=== PATIENT | female | born 1955 | race Caucasian/White ===

== ENCOUNTER → 2024-06-26 | Outpatient (CLI) | payer MEDICARE, OTHER, SELFPAY ==
--- NOTE | 2024-06-26 12:30 | XR_ITS ---
Examination: Breast ultrasound, unilateral, left complete Date and time of exam: June 26, 2024 1300 hours INDICATIONS: Mammogram January 18, 2024 6 mm focal asymmetry inner left breast anterior depth Technique: Real-time calero scale ultrasonographic imaging performed left breast including all 4 quadrants as well as nipple retroareolar and axillary region. Findings: No cystic or solid mass IMPRESSION: BI-RADS Category 1: Negative study
--- NOTE | 2024-06-26 13:15 | XR_ITS ---
Examination: Diagnostic digital mammography, unilateral, left Computer aided detection 3-D breast Tomosynthesis, unilateral Date and time of exam: June 26, 2024 1254 hours INDICATIONS: Mammogram January 18, 2024 6 mm focal asymmetry inner left breast anterior depth Technique: Nonmagnified MLO, CC views of the left breast have been obtained, reconstructed from 3-D Tomosynthesis images. R2 computer aided detection program utilized for evaluation of suspicious masses and/or abnormal calcifications. 3-D Tomosynthesis images obtained. Findings: Scattered areas of fibroglandular density Focal asymmetry remains inner left breast Spot compression cc view anterior depth Impression: BI-RADS category 3: Probably benign findings One additional 6 month left mammogram follow-up is needed to document stability of focal asymmetry described above
== END | disposition home or self-care (01) ==
LOC: CDIM 12:42
PROVIDERS: PCP Family Medicine; Referring Provider Nurse Practitioner Family; Visit Provider Nurse Practitioner Family
DX: R92.332 Mammographic heterogeneous density, left breast (principal); N64.89 Other specified disorders of breast
CPT/HCPCS: 76641; 77061; 77065; G0279

== ENCOUNTER 2024-06-30 10:48 | Outpatient (AMB) | payer MEDICARE, OTHER, SELFPAY ==
[2024-06-30 11:35] VITALS: BP 149/90; PULSE 96; RESP 17; TEMP 36.7; O2SAT 96; BMI 36.6
--- NOTE | 2024-06-30 11:35 | PD.ORTHCLVIS ---
Vital signs 06/30/24 11:35 Height 1.52 m Height Method Stated Weight 84.623 kg Weight Measurement Method Standing Scale BMI 36.6 BP 149/90 H Blood Pressure Source Automatic Cuff Blood Pressure Location Right Upper Arm Position Sitting Respiration 17 Pulse 96 Pulse Source Monitor Temp 98.1 F Temp Source Oral Pulse Oximetry (%) 96 Oxygen Delivery Method Room Air Med/Allergies Allergies & Medications Allergies No Known Allergies Allergy (Verified 04/07/24 14:27) Subjective Visit Visit for: follow up visit Immunization / Flu Flu Vaccine in the Last 12 Months: No Flu Vaccine Exclusion Criteria: Already Received History of Present Illness Chief complaint: PT HERE FOR FOLLOW UP KNEE PAIN Patient is a pleasant 68-year-old female with bilateral knee pain worse on the right. This been ongoing for several years. She had previously tried injections of steroids as well as hyaluronic acid. She also tried diclofenac cream. She had a [address] Melo. Personal History Occupation: RETIRED Red flag PMH: none Pain Pain level (0-10): 7 Pain duration: COMES ADN GOES WITH ACTIVITY Pain location: inside (medial), outside (lateral), anterior and posterior Pain quality: sharp and aching Pain timing: increases with activity Associated signs & symptoms: weakness and stiffness Ambulatory data Ambulatory device: none Treatments Number of previous injections: 3 Improvement with previous injections: No Improvement with PT: No Improvement with NSAIDS: no Review of Systems Review of Systems: All systems negative unless otherwise noted in HPI. Exam Exam Patient is in no acute distress and is cooperative with the examination today. Breathing is nonlabored. In no respiratory distress. Bilateral extremities were evaluated and demonstrates sensation intact to light touch. Palpable pedal pulses are present. No significant edema is present. Bilateral hips were examined. The patient has no pain with log roll of the hips. Internal rotation to 30 degrees and external rotation to 30 degrees is painless. Negative FADIR. The left knee was examined. The left knee is in [varus] alignment. Range of motion from [0-115] degrees. Knee is stable to varus and valgus as well as AP translation with <5mm. Patient has a [negative] McMurrays. There is [no] pain with patellofemoral compression and [no] crepitus noted. The knee is [tender] to palpation [medially]. The right knee was also examined. The right knee is in [varus] alignment. Range of motion from [0-120] degrees. Knee is stable to varus and valgus as well as AP translation with <5mm. Patient has a [negative] McMurrays. There is [no] pain with patellofemoral compression and [no] crepitus noted. The knee is [tender] to palpation [medially]. Bilateral knee x-rays demonstrate significant joint space narrowing medially. Assessment and Plan Problem List (1) Degenerative arthritis of knee, bilateral: Status: Acute Plan: Patient is a pleasant 68-year-old female with bilateral knee pain and bilateral knee arthritis. We discussed nonoperative and operative options. She would like to lose weight. We will see her back in approximately 3 months and likely discuss total knee replacement in great detail. She has failed conservative treatment at this point. She will call us when she is ready for surgery. She has [id number] arthritis but is still doing reasonably well Advanced Care Planning Discussion Advance care planning discussed with:: patient Office Procedures GNS Level of Care Nursing/Assessment Patient Status: Established Patient Nursing Assessment/Reassesment: Medication Reconciliation, Update PMH in EMR and Vital Signs Coordination of Care: Complex Care and Chronic Disease 1-5, Education Complex Pt/Fam, Consent,records obtained, informed consent, Lab and Imaging orders, Results/Orders obtained and Staff clarify orders Established Patient Charge Established Patient Point Assignment: 110 Established Patient Point Charge: EP Level 3 (80-115) Past Medical History Past Medical History Have you ever been diagnosed with any of the following: Neurological Problems Seizures: No Cardiology Problems Congestive Heart Failure: No Hypertension: Yes Respiratory Problems Chronic Obstructive Pulmonary Disease (COPD): No Bronchitis: Yes (many years ago) Smoking: No Smoking Exposure: No Stomache/Intestinal Problems Hepatitis: No Hemorrhoids: Yes Obesity: Yes Genital/Urinary Problems Renal Disease: No Reproductive Problems Previous Pregnancies: Yes (x3) Musculoskeletal Problems Arthritis: Yes (knees, hands) Head,Eye,Nose,Throat Problems Cataracts: Yes Endocrine Problems Diabetes Mellitus Type 1: No Diabetes Mellitus Type 2: No Hypothyroidism: Yes Psychologic Problems Depression: Yes Other Problems Hospitalization: Yes (surgery) Shingles: No Blood Transfusions: No Blood Transfusion Reaction: No Anesthesia Reactions: No Chicken Pox: Yes Measles: Yes Mumps: Yes Cancer: Yes Surgical History Hysterectomy: Yes
== END 2024-06-30 11:58 | disposition home or self-care (01) ==
PROVIDERS: PCP Nurse Practitioner Family; Referring Provider Nurse Practitioner Family; Supervising Provider Orthopaedic Surgery Adult Reconstructive Orthopaedic Surgery; Visit Provider Orthopaedic Surgery Adult Reconstructive Orthopaedic Surgery
DX: M17.0 Bilateral primary osteoarthritis of knee (principal); M25.562 Pain in left knee; M25.561 Pain in right knee; I10 Essential (primary) hypertension
CPT/HCPCS: 99213; G0463

== ENCOUNTER 2024-10-13 13:40 | Outpatient (AMB) | payer MEDICARE, OTHER, SELFPAY ==
--- NOTE | 2024-10-13 13:53 | PD.ORTHCLVIS ---
Vital signs 10/13/24 13:57 Height 1.52 m Height Method Stated Weight 77.139 kg Weight Measurement Method Standing Scale BMI 33.3 BP 121/80 Blood Pressure Source Automatic Cuff Blood Pressure Location Left Upper Arm Position Sitting Respiration 17 Pulse 99 Pulse Source Monitor Temp 98.3 F Temp Source Temporal Artery Scan Pulse Oximetry (%) 99 Oxygen Delivery Method Room Air Med/Allergies Allergies & Medications Allergies No Known Allergies Allergy (Verified 04/07/24 14:27) Exam Exam Patient is in no acute distress and is cooperative with the examination today. Breathing is nonlabored. In no respiratory distress. Bilateral extremities were evaluated and demonstrates sensation intact to light touch. Palpable pedal pulses are present. No significant edema is present. Bilateral hips were examined. The patient has no pain with log roll of the hips. Internal rotation to 30 degrees and external rotation to 30 degrees is painless. Negative FADIR. The left knee was examined. The left knee is in [varus] alignment. Range of motion from [0-115] degrees. Knee is stable to varus and valgus as well as AP translation with <5mm. Patient has a [negative] McMurrays. There is [no] pain with patellofemoral compression and [no] crepitus noted. The knee is [tender] to palpation [medially]. The right knee was also examined. The right knee is in [varus] alignment. Range of motion from [0-120] degrees. Knee is stable to varus and valgus as well as AP translation with <5mm. Patient has a [negative] McMurrays. There is [no] pain with patellofemoral compression and [no] crepitus noted. The knee is [tender] to palpation [medially]. Bilateral knee x-rays demonstrate significant joint space narrowing medially. She has complete obliteration of the medial joint space of both knees Assessment and Plan Problem List (1) Degenerative arthritis of knee, bilateral: Status: Acute Plan: Patient is a pleasant 68-year-old female with bilateral knee pain and bilateral knee arthritis. She is losing weight quite rapidly with Wegovy. She would like to get bilateral knee injections with hyaluronic acid injection today. Recommend knee hyaluronic acid injections as patient would like to proceed with conservative treatment at this time. The risks and benefits of the procedure were reviewed with the patient and patient gave verbal consent to continue with the procedure. Procedure: performed by Dr. Flynn Using sterile technique the Bilateral knees were thoroughly prepped with alcohol, and 2 syringes of Synvisc 1 was injected into each knee With 1 syringe for each knee. This was injected into the medial tibiofemoral joint space and the patient tolerated the procedure well. Advanced Care Planning Discussion Advance care planning discussed with:: patient Office Procedures GNS Level of Care Nursing/Assessment Patient Status: Established Patient Nursing Assessment/Reassesment: BP Monitoring, Medication Reconciliation and Vital Signs Coordination of Care: Complex Care and Chronic Disease 1-5, Consent,records obtained, informed consent and Lab and Imaging orders Established Patient Charge Established Patient Point Assignment: 80 Established Patient Point Charge: Level 3 (80-115) MA Intake Visit Data Collection New Patient or Established: Established Patient (seen at [facility] within 3 years) Reason for Visit:: 3 MONTH FOLLOW UP Seen by Clinical Staff ONLY (RN/MA): No Verbal consent obtained for Telemed visit?: No Magazine Worker Required: No PCP or OBGYN visit in last 3 months: No Hx Now: No Do You Feel Safe at Home: Yes Authorities Contacted: N/A Questionairres Past Medical History Past Medical History Have you ever been diagnosed with any of the following: Neurological Problems Seizures: No Cardiology Problems Congestive Heart Failure: No Hypertension: Yes Respiratory Problems Chronic Obstructive Pulmonary Disease (COPD): No Bronchitis: Yes (many years ago) Smoking: No Smoking Exposure: No Stomache/Intestinal Problems Hepatitis: No Hemorrhoids: Yes Obesity: Yes Genital/Urinary Problems Renal Disease: No Reproductive Problems Previous Pregnancies: Yes (x3) Musculoskeletal Problems Arthritis: Yes (knees, hands) Head,Eye,Nose,Throat Problems Cataracts: Yes Endocrine Problems Diabetes Mellitus Type 1: No Diabetes Mellitus Type 2: No Hypothyroidism: Yes Psychologic Problems Depression: Yes Other Problems Hospitalization: Yes (surgery) Shingles: No Blood Transfusions: No Blood Transfusion Reaction: No Anesthesia Reactions: No Chicken Pox: Yes Measles: Yes Mumps: Yes Cancer: Yes Surgical History Hysterectomy: Yes Subjective Visit Visit for: follow up visit Immunization / Flu Flu Vaccine in the Last 12 Months: Yes Flu Vaccine Exclusion Criteria: Already Received History of Present Illness Chief complaint: 3 MONTH FOLLOW UP/DESIRES SURGERY Hope is a pleasant 68-year-old female with bilateral knee pain and bilateral knee arthritis. The right side is worse than the left. She continues to lose weight very rapidly. The pain has improved somewhat Personal History Occupation: RETIRED Pain Pain level (0-10): 5 Pain duration: CONSTANT Pain location: inside (medial), outside (lateral), anterior and posterior Pain quality: sharp Pain timing: increases with activity Associated signs & symptoms: none Treatments Improvement with NSAIDS: n/a Review of Systems Review of Systems: All systems negative unless otherwise noted in HPI.
[2024-10-13 13:57] VITALS: BP 121/80; PULSE 99; RESP 17; TEMP 36.8; O2SAT 99; BMI 33.3
== END 2024-10-13 14:26 | disposition home or self-care (01) ==
LOC: HODSRG 13:40
PROVIDERS: PCP Family Medicine; Referring Provider Family Medicine; Supervising Provider Orthopaedic Surgery Adult Reconstructive Orthopaedic Surgery; Visit Provider Orthopaedic Surgery Adult Reconstructive Orthopaedic Surgery
DX: M17.0 Bilateral primary osteoarthritis of knee (principal); I10 Essential (primary) hypertension
CPT/HCPCS: 20610; 99213; G0463; J7325

== ENCOUNTER → 2024-10-25 | Outpatient (CLI) | payer MEDICARE, OTHER, SELFPAY ==
[2024-10-25 15:44] LABS: Anion Gap 7 (7-16); BUN/Creatinine Ratio 12 Ratio (12-20); Blood Urea Nitrogen 12 mg/dL (9-23); Calcium 9.9 mg/dL (8.3-10.6); Carbon Dioxide 28.5 mMol/L (20.0-31.0); Chloride 107 mMol/L (98-107); Glucose 100 mg/dL (74-106); Osmolality,Calculated 282 (275-295); Potassium 5.1 mMol/L (3.4-5.1); Sodium 142 mMol/L (136-145); eGFR > 60 See Note
== END | disposition home or self-care (01) ==
LOC: COPL 14:22
PROVIDERS: PCP Family Medicine; Referring Provider Nurse Practitioner Family; Visit Provider Nurse Practitioner Family
DX: H49.22 Sixth [abducent] nerve palsy, left eye (principal)
CPT/HCPCS: 36415; 80048

== ENCOUNTER → 2024-11-21 | Outpatient (CLI) | payer MEDICARE, OTHER, SELFPAY ==
--- NOTE | 2024-11-21 14:30 | XR_ITS ---
Examination: MRI of brain without intravenous contrast. MRI brain with intravenous contrast. Date and time of exam:November 21, 2024 1512 hours INDICATIONS: Left nerve palsy, double vision 2 years getting worse Technique: Multiple axial and sagittal images of the brain to been obtained. Siemens high-resolution 1.52 Chiara short bore scanner utilized. Sagittal sections, T1 weighted images, TR 500, TE 14, are performed. Axial sections proton-density and T2-weighted images have been obtained. Inversion recovery axial images, TR 9260, TE 111, TR 2500. Diffusion weighted images, axial sections, TR 4800, TE 128, B value 1000. Axial sections, ADC map, TR 4800, TE 128. Axial and coronal images were also obtained post 14 cc gadolinium administered intravenously. Findings:: Enlargement of the sella turcica is not present. The optic chiasm and infundibular stalk are not remarkable. There is no localized enlargement of the medulla or neil. Fourth ventricle and cerebellar tonsils appear normal in position. No subacute area of hemorrhage density is seen. Fourth ventricle is midline. Mass in the cerebellopontine angle region is not evident. 7th and 8th nerve complexes exhibit symmetry Globes are symmetrical Orbital musculature including medial lateral rectus muscles do not exhibit abnormality Increased white matter signal is mild Effacement of the cortical sulcal markings is not identified. Mass effect upon the ventricular system is not identified. Diffusion-weighted images demonstrate no focus of restricted diffusion Contrast images demonstrate no abnormal cerebellar or cerebral enhancement Impression: Negative for acute hemorrhage mass effect or midline shift No acute infarct Mild chronic microvascular white matter change No abnormal enhancing cerebellar or cerebral lesions
== END | disposition home or self-care (01) ==
LOC: SMRI 14:27
PROVIDERS: PCP Nurse Practitioner Family; Referring Provider Nurse Practitioner Family; Visit Provider Nurse Practitioner Family
DX: R90.82 White matter disease, unspecified (principal)
CPT/HCPCS: 70553; A9579

== ENCOUNTER → 2025-01-09 | Outpatient (BNVA) | payer MEDICARE, OTHER, SELFPAY | END | disposition home or self-care (01) | PROVIDERS: PCP Nurse Practitioner Family; Referring Provider Nurse Practitioner Family; Visit Provider Urology | DX: N32.81 Overactive bladder (principal); Z87.440 Personal history of urinary (tract) infections; I10 Essential (primary) hypertension; E03.9 Hypothyroidism, unspecified | CPT/HCPCS: 81003; 99212; G0463 ==

== ENCOUNTER 2025-02-13 08:08 | Outpatient (AMB) | payer MEDICARE, OTHER, SELFPAY ==
--- NOTE | 2025-02-13 08:10 | PD.ORTHCLVIS ---
Vital signs 02/13/25 08:17 Height 1.52 m Height Method Stated Weight 67.132 kg Weight Measurement Method Standing Scale BMI 29.0 BP 126/85 H Blood Pressure Source Automatic Cuff Blood Pressure Location Left Upper Arm Position Sitting Respiration 18 Pulse 114 H Pulse Source Monitor Temp 95.9 F L Temp Source Temporal Artery Scan Pulse Oximetry (%) 97 Oxygen Delivery Method Room Air Med/Allergies Allergies & Medications Allergies No Known Allergies Allergy (Verified 02/13/25 08:19) Medication Reconciliation paroxetine HCl 25 mg tablet,extended release 24 hr (Paxil CR) 50 mg PO QDAY ##0 10/09/14 [History Confirmed 02/13/25] pravastatin 80 mg tablet (Pravachol) 80 mg PO HS #0 tabs 10/09/14 [History Confirmed 02/13/25] levothyroxine 150 mcg tablet 150 mcg PO QDAY 01/05/18 [History Confirmed 02/13/25] oxybutynin chloride 10 mg tablet,extended release 24 hr 10 mg PO QDAY 03/16/22 [History Confirmed 02/13/25] lisinopril 10 mg tablet 10 mg PO QDAY 01/09/25 [History Confirmed 02/13/25] lisinopril 10 mg tablet 10 mg PO QDAY #0 tabs 01/09/25 [History Confirmed 02/13/25] semaglutide (weight loss) 0.5 mg/0.5 mL subcutaneous pen injector (Wegovy) 0.5 mg subcut QWEEK 01/09/25 [History Confirmed 02/13/25] Exam Exam Patient is in no acute distress and is cooperative with the examination today. Breathing is nonlabored. In no respiratory distress. Bilateral extremities were evaluated and demonstrates sensation intact to light touch. Palpable pedal pulses are present. No significant edema is present. Bilateral hips were examined. The patient has no pain with log roll of the hips. Internal rotation to 30 degrees and external rotation to 30 degrees is painless. Negative FADIR. The left knee was examined. The left knee is in [varus] alignment. Range of motion from [0-115] degrees. Knee is stable to varus and valgus as well as AP translation with <5mm. Patient has a [negative] McMurrays. There is [no] pain with patellofemoral compression and [no] crepitus noted. The knee is [tender] to palpation [medially]. The right knee was also examined. The right knee is in [varus] alignment. Range of motion from [0-120] degrees. Knee is stable to varus and valgus as well as AP translation with <5mm. Patient has a [negative] McMurrays. There is [no] pain with patellofemoral compression and [no] crepitus noted. The knee is [tender] to palpation [medially]. Bilateral knee x-rays demonstrate significant joint space narrowing medially. She has complete obliteration of the medial joint space of both knees Assessment and Plan Problem List (1) Degenerative arthritis of knee, bilateral: Status: Acute Plan: Patient is a pleasant 68-year-old female with bilateral knee pain and bilateral knee arthritis. She has lost a lot of weight and has lost about 40 pounds at this point in time. We thus discussed right total knee replacement as a reasonable option The nature and purpose of the total knee replacement, alternative method(s) of treatment, the material risks involved, and the possibility of complications were fully explained to the patient. The patient does NOT have any of the following contraindications to TKA: - Active infection of the knee joint, OR - Active systemic bacteremia, OR - Active skin infection or open wound at surgical site, OR - Neuropathic arthritis, OR - Severe, rapidly progressive neurological disease, OR - Severe medical condition that makes risks of surgery outweigh the potential benefit The patient was told the most common risks and complications associated with a total knee replacement include, but are not limited to: blood clots in the leg, fatal pulmonary embolism, dislocation of the prosthesis, intraoperative and postoperative fractures of the femur or tibia, infection, failure of the prosthesis or grafting materials, complications from anesthesia, reactions to blood transfusions, postoperative leg length inequality, instability of the knee replacement, nerve damage or injury, vascular injury, delayed wound healing, infection, other injury or even . In addition, there are risks associated with anesthesia given during this operation. Also, the patient was told that after undergoing a total knee replacement there may still be persistent pain or disability. The patient was informed that the success of this operation in part depends upon the mechanical devices which are going to be implanted and that these devices can fail or malfunction, and may need to be repaired or replaced and there are no guarantees as to the longevity of this device or its parts and that it or its parts could fail prematurely. The patient was also notified that during the course of surgery, there may be a need to use bone graft from donors, and that any bone graft used will be carefully screened for communicable diseases, including AIDS, hepatitis, Mj-Creutzfeldt, or other diseases, but despite the screening procedures, there is a small chance that they could contract one of these diseases. Finally, the patient was asked to follow completely and fully with all advice and recommended treatments, and that recovery and ultimate outcome are affected by their compliance with recommended treatment. We discussed the risks, benefits and treatment alternatives, and the patient is interested in proceeding with surgery. We will try to set this up as expeditiously as possible. Advanced Care Planning Discussion Advance care planning discussed with:: patient Office Procedures GNS Level of Care Nursing/Assessment Patient Status: Established Patient Nursing Assessment/Reassesment: Medication Reconciliation, Update PMH in EMR and Vital Signs Coordination of Care: Complex Care and Chronic Disease 1-5, Education Complex Pt/Fam, Consent,records obtained, informed consent, Results/Orders obtained and Staff clarify orders Established Patient Charge Established Patient Point Assignment: 95 Established Patient Point Charge: EP Level 3 (80-115) MA Intake Visit Data Collection New Patient or Established: Established Patient (seen at [facility] within 3 years) Reason for Visit:: FOLLOW UP RIGHT KNEE PAIN Seen by Clinical Staff ONLY (RN/MA): No PCP or OBGYN visit in last 3 months: Yes Hx Now: No Do You Feel Safe at Home: Yes Authorities Contacted: N/A Questionairres Past Medical History Past Medical History Have you ever been diagnosed with any of the following: Neurological Problems Cerebrovascular Accident (CVA): No Transient Ischemic Attacks (TIA): No Dementia: No Alzheimer's Disease: No Parkinson's Disease: No Brain Tumor: No Meningitis: No Seizures: No Epilepsy: No Multiple Sclerosis: No Cerebral Palsy: No Amyotrophic Lateral Sclerosis (ALS/Nakia Gehrig's): No Guillain-Auburn Syndrome: No Spina Bifida: No Paralysis: No Peripheral Neuropathy: No Hurtado's Palsy: No Subdural Hematoma: No Migraine: No Head Trauma: No Spinal Cord Injury: No Traumatic Brain Injury: No Cardiology Problems Myocardial Infarction: No Cardiac Arrhythmia: No Atrial Fibrillation: No Angina: No Heart Murmur: No Coronary Artery Disease: No Atherosclerotic Heart Disease: No Peripheral Vascular Disease: No Hypercholesterolemia: No Aneurysm: No Congestive Heart Failure: No Congenital Heart Disease: No Valvular Heart Disease: No Rheumatic Fever: No Cardiomyopathy: No Edema: No Pericarditis: No Cellulitis: No Deep Vein Thrombosis: No Hypertension: Yes Hypotension: No Varicose Veins: No Respiratory Problems Chronic Obstructive Pulmonary Disease (COPD): No Asthma: No Bronchitis: Yes (many years ago) Emphysema: No Pneumonia: No Pulmonary Fibrosis: No Tuberculosis: No Pulmonary Embolism: No Pulmonary Edema: No Sleep Apnea: No CPAP Dependent: No Respiratory Aspiration: No Dyspnea: No Orthopnea: No Hx Cough: No Cough: No Wheezing: No Chest Deformities: No Smoking: No Smoking Cessation Counseling: No Smoking Exposure: No Stomache/Intestinal Problems Hepatitis: No Hemorrhoids: Yes Obesity: Yes Genital/Urinary Problems Renal Disease: No Reproductive Problems Previous Pregnancies: Yes (x3) Musculoskeletal Problems Arthritis: Yes (knees, hands) Head,Eye,Nose,Throat Problems Cataracts: Yes Endocrine Problems Diabetes Mellitus Type 1: No Diabetes Mellitus Type 2: No Hypothyroidism: Yes Psychologic Problems Depression: Yes Other Problems Hospitalization: Yes (surgery) Shingles: No Blood Transfusions: No Blood Transfusion Reaction: No Anesthesia Reactions: No Chicken Pox: Yes Measles: Yes Mumps: Yes Cancer: Yes Surgical History Hysterectomy: Yes Subjective Visit Visit for: follow up visit and knee Immunization / Flu Flu Vaccine in the Last 12 Months: Yes Flu Vaccine Exclusion Criteria: Already Received History of Present Illness Chief complaint: 3 MONTH FOLLOW UP/DESIRES SURGERY Hope is a pleasant 68-year-old female with bilateral knee pain and bilateral knee arthritis. The right side is worse than the left. She has lost over 40 pounds and her weight is plateauing and she has tried Multiple injections, anti-inflammatories, and home exercises. At this point, the pain is affecting her quality life and happiness. We did discuss total knee replacement is a reasonable option Personal History Occupation: RETIRED Pain Pain level (0-10): 5 Pain duration: CONSTANT Pain location: inside (medial), outside (lateral), anterior and posterior Pain quality: sharp Pain timing: increases with activity Associated signs & symptoms: none Treatments Improvement with previous injections: No Improvement with PT: No Improvement with NSAIDS: n/a Review of Systems Review of Systems: All systems negative unless otherwise noted in HPI.
[2025-02-13 08:17] VITALS: BP 126/85; PULSE 114; RESP 18; TEMP 35.5; O2SAT 97; BMI 29.0
--- NOTE | 2025-02-13 08:34 | XR_ITS ---
Examination: Bilateral knees 2 views Right lateral knee left lateral knee 2 views Bilateral axial knees single view TECHNIQUE: Bilateral AP knees standing single view, bilateral PA knees standing single view flexion Standing right lateral knee left lateral knee 2 views Bilateral axial knees single view total 5 views Date and time: February 13, 2025 0847 hours Comparison December 30, 2023 INDICATIONS: Bilateral knee pain several years. FINDINGS: Advanced narrowing medial joint spaces bilaterally, more severe on the left Bilateral moderate osteoarthritis patellofemoral joints No fractures No patellar dislocations IMPRESSION: Advanced narrowing medial joint spaces bilaterally, more severe on the left Bilateral moderate osteoarthritis patellofemoral joints
== END 2025-02-13 08:53 | disposition home or self-care (01) ==
LOC: HODSRG 08:08
PROVIDERS: PCP Nurse Practitioner Family; Referring Provider Nurse Practitioner Family; Supervising Provider Orthopaedic Surgery Adult Reconstructive Orthopaedic Surgery; Visit Provider Orthopaedic Surgery Adult Reconstructive Orthopaedic Surgery
DX: M17.0 Bilateral primary osteoarthritis of knee (principal); M25.562 Pain in left knee; M25.561 Pain in right knee; I10 Essential (primary) hypertension; E03.9 Hypothyroidism, unspecified
CPT/HCPCS: 73564; 99213; G0463

== ENCOUNTER → 2025-02-16 | Outpatient (CLI) | payer MEDICARE, OTHER, SELFPAY ==
[2025-02-16 16:10] LABS: Basophils # (Auto) 0.0 Thou/mm3 (0.0-0.2); Basophils % (Auto) 1 % (0-2.5); Eosinophils # (Auto) 0.1 Thou/mm3 (0.0-0.5); Eosinophils % (Auto) 1 % (0-10); Hematocrit 47.8 % (36.0-46.0); Hemoglobin 15.5 g/dL (12.0-16.0); Immature Granulocytes Auto 0.02 Thou/mm3 (0.00-0.00); Lymphocytes # (Auto) 1.7 Thou/mm3 (1.0-4.8); Lymphocytes % (Auto) 25 % (10-50); Mean Corpuscular HGB Conc 32.4 g/dl (31.0-37.0); Mean Corpuscular Hemoglobin 27.2 pg (25.0-35.0); Mean Corpuscular Volume 84 fL (80-100); Monocytes # (Auto) 0.5 Thou/mm3 (0.0-0.8); Monocytes % (Auto) 7 % (0-12); Neutrophils # (Auto) 4.4 Thou/mm3 (1.8-7.7); Neutrophils % (Auto) 66 % (37-80); Nucleated Red Blood Cell # 0.00 Thou/mm3 (0.00-0.00); Nucleated Red Blood Cell % 0 /100 WBC (0); Platelet Count 254 Thou/mm3 (140-440); RDW Standard Deviation 38.4 fL (36.4-46.3); Red Blood Count 5.70 Miln/mm3 (4.00-5.20); White Blood Count 6.6 Thou/mm3 (3.6-11.0)
[2025-02-16 16:21] LABS: Glucose Estimated Average 103 mg/dL (80-131); Hemoglobin A1C 5.2 % Hgb (4.8-6.0); INR 1.0 (0.9-1.3); Partial Thromboplastin Time 24.5 Seconds (22.0-36.0); Prothrombin Time 11.4 Seconds (9.0-12.2)
[2025-02-16 16:24] LABS: Alanine Aminotransferase 16 U/L (10-49); Albumin, Serum 4.6 gm/dL (3.4-4.8); Albumin/Globulin Ratio 2.1 (1.2-2.2); Alkaline Phosphatase 63 U/L (46-116); Anion Gap 10 (7-16); Aspartate Amino Transferase 22 U/L (0-34); BUN/Creatinine Ratio 10 Ratio (12-20); Bilirubin,Total 0.6 mg/dL (0.3-1.2); Blood Urea Nitrogen 10 mg/dL (9-23); Calcium 10.1 mg/dL (8.3-10.6); Calcium (Corrected) 10.1 mg/dL (8.5-10.1); Carbon Dioxide 25.7 mMol/L (20.0-31.0); Chloride 104 mMol/L (98-107); Creatinine (Component) 1.0 mg/dL (0.6-1.3); Globulin 2.2 gm/dL (2.3-3.5); Glucose 90 mg/dL (74-106); Osmolality,Calculated 278 (275-295); Potassium 5.6 mMol/L (3.4-5.1); Sodium 140 mMol/L (136-145); Total Protein 6.8 gm/dL (5.7-8.2); eGFR > 60 See Note
== END | disposition home or self-care (01) ==
LOC: COPL 14:16
PROVIDERS: PCP Nurse Practitioner Family; Referring Provider Nurse Practitioner Family; Visit Provider Nurse Practitioner Family
DX: Z01.818 Encounter for other preprocedural examination (principal)
CPT/HCPCS: 36415; 80053; 83036; 85025; 85610; 85730

== ENCOUNTER → 2025-02-19 | Outpatient (CLI) | payer MEDICARE, OTHER, SELFPAY ==
[2025-02-19 15:49] LABS: Potassium 4.9 mMol/L (3.4-5.1)
== END | disposition home or self-care (01) ==
LOC: COPL 14:21
PROVIDERS: PCP Family Medicine; Referring Provider Nurse Practitioner Family; Visit Provider Nurse Practitioner Family
DX: E87.5 Hyperkalemia (principal)
CPT/HCPCS: 36415; 84132

== ENCOUNTER → 2025-03-02 | Outpatient (CLI) | payer MEDICARE, OTHER, SELFPAY ==
--- NOTE | 2025-03-02 12:00 | XR_ITS ---
Examination: CT right lower extremity, without contrast. 2-D sagittal reconstructions. 2-D coronal reconstructions. 3-D reconstructions. Date and time of exam:March 12, 2025 12:30 PM INDICATIONS: Diagnosis unilateral right knee osteoarthritis, right knee pain years CTDI: vol (mGy):28.8 DLP: (mGycm):1015 Technique: Multiple 1.25 mm axial sections of the right lower extremity without intravenous contrast have been obtained. 2-D sagittal and coronal reconstructions have been obtained. 3-D reconstructions have been obtained. Low dose protocols were performed. One or more of the following dose reduction techniques were used; automated exposure control, adjustment of the mA and/or KV according to patient size, use of iterative reconstruction technique. Findings: Moderate osteopenia Mild bilateral narrowing hip joints Advanced narrowing medial joint space right knee No right knee fracture or dislocation IMPRESSION: Advanced narrowing medial joint space right knee
== END | disposition home or self-care (01) ==
LOC: CCTX 11:45
PROVIDERS: PCP Nurse Practitioner Family; Referring Provider Orthopaedic Surgery Adult Reconstructive Orthopaedic Surgery; Visit Provider Orthopaedic Surgery Adult Reconstructive Orthopaedic Surgery
DX: M25.861 Other specified joint disorders, right knee (principal)
CPT/HCPCS: 73700

== ENCOUNTER → 2025-03-08 | Outpatient (CLI) | payer MEDICARE, OTHER, SELFPAY ==
--- NOTE | 2025-03-08 10:45 | XR_ITS ---
Examination: Screening digital mammography, bilateral Computer aided detection 3-D breast Tomosynthesis, bilateral Date and time of exam: March 08, 2025 1034 hours Compared to mammograms dating to July 24, 2015 Indication: Screening Technique: Nonmagnified MLO, CC views of the breasts to been obtained, reconstructed from 3-D Tomosynthesis images. R2 computer aided detection program utilized for evaluation of suspicious masses and/or abnormal calcifications. 3-D Tomosynthesis images obtained. Findings: Scattered areas of fibroglandular density 4 mm nodule retroareolar region left breast partially circumscribed Skin lesion left breast Impression: BI-RADS Category 0: Incomplete: Need additional imaging evaluation Recommend follow-up spot tomographic views of 4 mm nodule retroareolar region left breast as well as bilateral breast sonography to complete the workup
== END | disposition home or self-care (01) ==
LOC: CDIM 10:19
PROVIDERS: Referring Provider Nurse Practitioner Family; Visit Provider Nurse Practitioner Family
DX: Z12.31 Encounter for screening mammogram for malignant neoplasm of breast (principal); N63.42 Unspecified lump in left breast, subareolar
CPT/HCPCS: 77063; 77067

== ENCOUNTER 2025-03-21 05:35 | Day surgery (SDC) | payer MEDICARE, OTHER, SELFPAY ==
[2025-03-15 07:37] VITALS: BMI 27.1
[2025-03-15 09:02] LABS: Basophils # (Auto) 0.0 Thou/mm3 (0.0-0.2); Basophils % (Auto) 1 % (0-2.5); Eosinophils # (Auto) 0.1 Thou/mm3 (0.0-0.5); Eosinophils % (Auto) 2 % (0-10); Hematocrit 45.9 % (36.0-46.0); Hemoglobin 15.1 g/dL (12.0-16.0); Immature Granulocytes Auto 0.03 Thou/mm3 (0.00-0.00); Lymphocytes # (Auto) 2.2 Thou/mm3 (1.0-4.8); Lymphocytes % (Auto) 28 % (10-50); Mean Corpuscular HGB Conc 32.9 g/dl (31.0-37.0); Mean Corpuscular Hemoglobin 27.5 pg (25.0-35.0); Mean Corpuscular Volume 84 fL (80-100); Monocytes # (Auto) 0.5 Thou/mm3 (0.0-0.8); Monocytes % (Auto) 7 % (0-12); Neutrophils # (Auto) 4.8 Thou/mm3 (1.8-7.7); Neutrophils % (Auto) 62 % (37-80); Nucleated Red Blood Cell # 0.00 Thou/mm3 (0.00-0.00); Nucleated Red Blood Cell % 0 /100 WBC (0); Platelet Count 269 Thou/mm3 (140-440); RDW Standard Deviation 39.1 fL (36.4-46.3); Red Blood Count 5.50 Miln/mm3 (4.00-5.20); White Blood Count 7.7 Thou/mm3 (3.6-11.0)
[2025-03-15 09:11] LABS: INR 1.0 (0.9-1.3); Partial Thromboplastin Time 26.8 Seconds (22.0-36.0); Prothrombin Time 11.4 Seconds (9.0-12.2)
[2025-03-15 09:13] LABS: Alanine Aminotransferase 14 U/L (10-49); Albumin, Serum 4.6 gm/dL (3.4-4.8); Albumin/Globulin Ratio 2.0 (1.2-2.2); Alkaline Phosphatase 63 U/L (46-116); Anion Gap 9 (7-16); Aspartate Amino Transferase 25 U/L (0-34); BUN/Creatinine Ratio 7 Ratio (12-20); Bilirubin,Total 0.5 mg/dL (0.3-1.2); Blood Urea Nitrogen 6 mg/dL (9-23); Calcium 10.1 mg/dL (8.3-10.6); Calcium (Corrected) 10.1 mg/dL (8.5-10.1); Carbon Dioxide 27.8 mMol/L (20.0-31.0); Chloride 105 mMol/L (98-107); Creatinine (Component) 0.9 mg/dL (0.6-1.3); Estimated Creatinine Clearance 50.3 mL/min (>60); Globulin 2.3 gm/dL (2.3-3.5); Glucose 94 mg/dL (74-106); Osmolality,Calculated 280 (275-295); Potassium 4.0 mMol/L (3.4-5.1); Sodium 142 mMol/L (136-145); Total Protein 6.9 gm/dL (5.7-8.2); eGFR > 60 See Note
[2025-03-21] VITALS (21 sets, daily range): BP systolic 98–146; BP diastolic 67–97; PULSE 82–101; RESP 14–20; TEMP 36.1–36.9; O2SAT 95–100; BMI 27.3; BMI 14.0
[2025-03-21] MEDS: ACETAMINOPHEN 325 MG TABLET 650 MG PO (07:03)
[2025-03-21] MEDS: PREGABALIN 75 MG CAPSULE PO (07:03)
[2025-03-21] MEDS: MELOXICAM 7.5 MG TABLET PO (07:03)
[2025-03-21] MEDS: SODIUM CHLORIDE 0.9% 500 ML 1,000 ML 20 ML IV (07:05)
--- NOTE | 2025-03-21 08:47 | XR_ITS ---
Examination: Right knee 2 views Technique: AP lateral right knee 2 views Date and time: March 21, 2025, 0941 hrs. Indications: Status post knee replacement today. Findings: Total right knee arthroplasty. Satisfactory alignment. No fracture. Impression: Total right knee arthroplasty with satisfactory alignment.
--- NOTE | 2025-03-21 08:48 | PD.SUROPNT ---
Date of Procedure 03/21/25 Pre Op Diagnosis right knee osteoarthritis Post Op Diagnosis right knee osteoarthritis Procedure right total knee replacement richard Findings full thickness cartilage loss and osteophytes Procedure Description Indication: The patient is a 69 year old who has a long history of right knee pain. X-rays show degenerative arthritis involving the knee. Over the past several years the patient has had increasing pain, progressive limitation in function. He has failed conservative measures including activity modification, physical therapy, injections, anti-inflammatories, and assistive devices. After a lengthy discussion of the risks and benefits, the patient presents now for total knee replacement. The nature and purpose of the total knee replacement, alternative method(s) of treatment, the material risks involved, and the possibility of complications were fully explained to the patient. The patient was told the most common risks and complications associated with a total knee replacement include, but are not limited to blood clots in the leg, fatal pulmonary embolism, dislocation of the prosthesis, intraoperative and postoperative fractures of the femur or tibia, infection, failure of the prosthesis or grafting materials, complications from anesthesia, reactions to blood transfusions, postoperative leg length inequality, instability of the knee replacement, nerve damage or injury, vascular injury, delayed wound healing, infections, other injury or even . In addition, there are risks associated with anesthesia given during this operation, temporary or permanent numbness on the skin lateral to the incision can be a complication unique to total knee surgery, and kneeling can be painful after knee replacement surgery. Also, the patient was told that after undergoing a total knee replacement there may still be pain or disability. We discussed with the patient that we will be using a robot-assisted technology. We discussed that there is a possibility of converting to manual instrumentation. The patient was informed that the success of this operation in part depends upon the mechanical devices which are going to be implanted and that these devices can fail or malfunction, and may need to be repaired or replaced and there are no guarantees as to the longevity of this device or its part and that it or its parts could fail prematurely. Finally, the patient was asked to follow completely and fully with all advice and recommended treatments, and that recovery and ultimate outcome are affected by their compliance with recommended treatment. Surgical technique: Patient was marked and consented in the pre-operative area. The patient was brought to the operating room and placed on the operating table in a supine position. Prior to positioning, a timeout procedure was performed between the surgeon, the anesthesiologist, and the nursing staff where the patient and the operative side were identified and confirmed. After adequate general anesthetic was obtained, the right lower extremity was prepped and draped in the usual sterile fashion. A weight based dose of Cefazolin were administered within 1 hour prior to incision. The robot was preregistered and calirated before the incision. The extremity was exsanguinated with an esmarch badge and tourniquet inflated to 250mmHg. A midline incision was made. A median parapatellar arthrotomy was made. The patella was subluxed laterally. A medial release was performed to expose the medial tibia. His femoral and tibial pins were placed through an intra incisional manner for both cases. Every effort was made to ensure that the distalmost aspect of the pin was hung in the second cortex. The arrays were then tightened several times to ensure that it was fixed for the remainder of the case. Both femoral and tibial checkpoints were then placed. We then went through the registration process of the bone. We then assessed the knee deformity and attempted to correct it. We also used the robot to aid in judging laxity in both extension and flexion. Final based on laxity and alignment we changed the preoperative assessment to obtain proper proper implant positioning and to correct deformity. Attention was then placed to the tibia. We made a tibial cut using the robot ensuring that both the MCL and the patella tendon were protected with retractors. We then went to the femur and made the posterior cut followed by the anterior cut and the anterior chamfer. The bone was then removed and we made a distal femur cut and a posterior chamfer cut. We verified all cuts. A trial reduction was performed with a size 3 femoral component and a size 3 keeled tibial component. The patella tracked centrally, and no lateral retinacular release was necessary. The trial implants were removed. The arrays, pins, and checkpoints were all removed. We performed a verification that all pins were removed. The cut bone surfaces were lavaged. A size 3 right femoral component, a size 3 keeled tibial component were impacted into position. The knee was felt to be well balanced in the sagittal and coronal plane. The final [2x12] mm cruciate-substituting articular insert was impacted into the tibial tray. The knee was brought out to full extension, flexed up to 120 degrees. It was stable to varus and valgus stress and appropriately balanced in flexion and extension. The wounds were copiously irrigated following deflation of tourniquet. The medial retinaculum was reapproximated with #1 vicryl and quill. The subcutaneous tissues were closed with 0 and 2-0 interrupted Vicryl. The skin was closed with 3-0 Monofilament V loc suture. A sterile dressing was applied. The patient was transferred to a bed and brought to recovery in stable condition. The patient tolerated the procedure well. There were no intraoperative complications. Sponge and needle counts were correct times 2. As the attending surgeon, Gino macias I was present and performed the entire operation. Grafts/Implants Size 3 CR Femur Size 3 Tibia 10mm poly CS Anesthesia spinal Implants larry Pathology / specimen None Pathology comment: none Estimated Blood Loss 150 Condition Stable Disposition same day Surgeon Arvind Flynn MD Surgical Staff Operation Date: 03/21/25 07:30 Case Staff Anesthesiologist: Enrike Cool RNbranch or department chief librarian: Lara Newman
--- NOTE | 2025-03-21 09:10 | SUR.PHASEI ---
0910 Patient arrived to recovery resting comfortably in [facility], awake and alert, breathing unlabored, vital signs stable, denies pain, dressing intact to right knee; prineo, abd, telfa, webril, hannah wraps, no bleeding noted, bilateral dorsalis pedis pulses present when palpated, post spinal anesthesia assessment via ice; patient has dermatome sensation at T-10 (umbilicus), patient unable to move bilateral lower extremities, due spinal anesthesia-will monitor, report recieved from Dr. Cool and Yanci REHMAN
--- NOTE | 2025-03-21 11:55 | SUR.PHASEII ---
1155 spinal anesthesia complete patient has dermatome sensation at S2 perineum
--- NOTE | 2025-03-21 12:34 | SUR.PHASEII ---
[id number] patient working with physical therapy and feeling dizzy and shaky, physical therapist stated she wanted to give patient one hour to rest and she would return at 1337
--- NOTE | 2025-03-21 13:26 | SUR.PHASEII ---
1248: pt sitting up in [facility] with eyes open, eating lunch, denies pain, breathing unlabored, dressing to right lower extremity clean, dry, and intact, report from Amy Martínez RN 1326: pt resting in [facility], breathing unlabored, dressing to right lower extremity clean, dry, and intact, report to Amy Martínez RN
--- NOTE | 2025-03-21 13:45 | SUR.PHASEII ---
1345 patient cleared by physical therapist Yani to proceed with discharge, however patient unable to void in restroom, will continue to encourage patient to drink fluids
--- NOTE | 2025-03-21 15:10 | SUR.PHASEII ---
1510 patient disconnected from vital signs stable, voided in the restroom, and is awaiting her to come back to the hospital
--- NOTE | 2025-03-21 15:32 | SUR.PHASEII ---
1532 Patient meets discharge criteria from recovery, awake and alert, breathing unlabored, vital signs stable, denies pain, dressing intact; no bleeding noted, denies nausea, able to dress herself into her clothing, discharge instructions given to patient and patients , signed discharge instructions. Patient given all her belongings prior to discharge, transported via wheelchair and left in a private vehicle.
--- NOTE | 2025-03-23 15:55 | PD.ANESPROG ---
Documentation for date of: 03/23/25 POST ANESTHESIA NOTE: Patient had spinal anesthesia and R adductor canal block for R TKA on 03/21/25. I just called and spoke with her on the phone and she denied any problems from anesthesia. Enrike Cool MD Anesthesia Progress Note Progress Note Most recent Vital Signs: Last Vital Signs Temp 98.2 F 03/21/25 15:00 Pulse 99 03/21/25 15:00 Resp 19 03/21/25 15:00 BP 121/78 03/21/25 15:00 Pulse Ox 96 03/21/25 15:00
== END 2025-03-21 15:32 | disposition home or self-care (01) ==
PROVIDERS: Anesthesiology; PCP Nurse Practitioner Family; Referring Provider Orthopaedic Surgery Adult Reconstructive Orthopaedic Surgery; Visit Provider Orthopaedic Surgery Adult Reconstructive Orthopaedic Surgery
PROC: (CPT 27447; principal; 2025-03-21 07:30)
DX: M17.11 Unilateral primary osteoarthritis, right knee (principal); M25.761 Osteophyte, right knee
CPT/HCPCS: 27447; 20985; 73560; 97163; A4217; A4649; C1713; C1776; J0690; J1100; J2250; J2371; J2704; J2795; J3010; J3490; J7999; A4648; A9270

== ENCOUNTER → 2025-04-04 | Outpatient (CLI) | payer MEDICARE, OTHER, SELFPAY ==
--- NOTE | 2025-04-04 13:30 | XR_ITS ---
Examination: Breast ultrasound complete, bilateral Date and time of exam: April 04, 2025, 1410 hours INDICATIONS: Mammogram March 08, 2025 4 mm nodule retroareolar region left breast Technique: Real-time grayscale ultrasonographic imaging bilateral breasts, including all 4 quadrants as well as nipple retroareolar and axillary regions. Findings: Sonographic images right breast and left breast No cystic or solid masses IMPRESSION: BI-RADS Category 1: Negative studies
--- NOTE | 2025-04-04 14:30 | XR_ITS ---
Examination: Diagnostic digital mammography, unilateral, left Computer aided detection 3-D breast Tomosynthesis, unilateral Date and time of exam: April 04, 2025 1424 hours INDICATIONS: Mammogram March 08, 2025 4 mm nodule retroareolar region left breast Technique: Nonmagnified MLO, CC views of the left breast have been obtained, reconstructed from 3-D Tomosynthesis images. R2 computer aided detection program utilized for evaluation of suspicious masses and/or abnormal calcifications. 3-D Tomosynthesis images obtained. Findings: Scattered areas of fibroglandular density 4 mm retroareolar nodule remains Impression: BI-RADS category 3: Probably benign findings Recommend 1 additional 6 month left mammogram follow-up
== END | disposition home or self-care (01) ==
PROVIDERS: PCP Nurse Practitioner Family; Referring Provider Nurse Practitioner Family; Visit Provider Nurse Practitioner Family
DX: R92.332 Mammographic heterogeneous density, left breast (principal)
CPT/HCPCS: 76641; 77061; 77065; G0279

== ENCOUNTER 2025-04-05 12:59 | Outpatient (AMB) | payer MEDICARE, OTHER, SELFPAY ==
--- NOTE | 2025-04-05 13:25 | PD.ORTHCLVIS ---
Vital signs 04/05/25 13:29 Height 1.55 m Height Method Stated Weight 67.358 kg Weight Measurement Method Standing Scale BMI 28.0 BP 118/82 Blood Pressure Source Automatic Cuff Blood Pressure Location Left Upper Arm Position Sitting Respiration 19 Pulse 106 H Pulse Source Monitor Temp 97.5 F Temp Source Temporal Artery Scan Pulse Oximetry (%) 96 Oxygen Delivery Method Room Air Med/Allergies Allergies & Medications Allergies No Known Allergies Allergy (Verified 04/05/25 13:30) Medication Reconciliation paroxetine HCl 25 mg tablet,extended release 24 hr (Paxil CR) 50 mg PO QDAY ##0 10/09/14 [History Confirmed 04/05/25] pravastatin 80 mg tablet (Pravachol) 80 mg PO HS #0 tabs 10/09/14 [History Confirmed 04/05/25] oxybutynin chloride 10 mg tablet,extended release 24 hr 10 mg PO QDAY 03/16/22 [History Confirmed 04/05/25] lisinopril 10 mg tablet 10 mg PO QDAY #0 tabs 01/09/25 [History Confirmed 04/05/25] semaglutide (weight loss) 0.5 mg/0.5 mL subcutaneous pen injector (Wegovy) 0.5 mg subcut QWEEK 01/09/25 [History Confirmed 04/05/25] levothyroxine 150 mcg tablet 150 mcg PO QDAY 03/15/25 [History Confirmed 04/05/25] acetaminophen 500 mg tablet (Acetaminophen Extra Strength) 1,000 mg (2 x 500 mg) PO Q6H PRN pain #90 tabs 03/21/25 [Rx Confirmed 04/05/25] aspirin 81 mg tablet,delayed release 81 mg PO BID #60 tabs 03/21/25 [Rx Confirmed 04/05/25] doxycycline hyclate 100 mg tablet 100 mg PO BID #14 tabs 03/21/25 [Rx Confirmed 04/05/25] gabapentin 300 mg capsule 300 mg PO .qhs #30 caps 03/21/25 [Rx Confirmed 04/05/25] oxycodone 5 mg tablet 5 mg PO Q6H PRN pain #28 tabs 03/21/25 [Rx Confirmed 04/05/25] sennosides 8.6 mg-docusate sodium 50 mg tablet (Senna-S) 1 tab-cap PO QDAY #30 tabs 03/21/25 [Rx Confirmed 04/05/25] oxycodone 5 mg tablet 5 mg PO Q6H PRN pain #28 tabs 03/29/25 [Rx Confirmed 04/05/25] Exam Exam Patient is in no acute distress and is cooperative with the examination today. Breathing is nonlabored. In no respiratory distress. Bilateral extremities were evaluated and demonstrates sensation intact to light touch. Palpable pedal pulses are present. No significant edema is present. Bilateral hips were examined. The patient has no pain with log roll of the hips. Internal rotation to 30 degrees and external rotation to 30 degrees is painless. Negative FADIR. The left knee was examined. The left knee is in [varus] alignment. Range of motion from [0-115] degrees. Knee is stable to varus and valgus as well as AP translation with <5mm. Patient has a [negative] [place]. There is [no] pain with patellofemoral compression and [no] crepitus noted. The knee is [tender] to palpation [medially]. The right knee was also examined. R knee incision is C/D/I Assessment and Plan Problem List (1) Degenerative arthritis of knee, bilateral: Status: Acute Plan: Patient is a pleasant 68-year-old female with bilateral knee pain and bilateral knee arthritis. She is s/p R TKA and is doing well. We will see her back in 4 weeks with new xrays Advanced Care Planning Discussion Advance care planning discussed with:: patient Office Procedures GNS Level of Care Nursing/Assessment Patient Status: Established Patient Nursing Assessment/Reassesment: Medication Reconciliation, Update PMH in EMR and Vital Signs Coordination of Care: Complex Care and Chronic Disease 1-5, Education Complex Pt/Fam, Consent,records obtained, informed consent, Results/Orders obtained and Staff clarify orders Established Patient Charge Established Patient Point Assignment: 95 Established Patient Point Charge: EP Level 3 (80-115) MA Intake Visit Data Collection New Patient or Established: Established Patient (seen at [facility] within 3 years) Reason for Visit:: FU R TKA Seen by Clinical Staff ONLY (RN/MA): No PCP or OBGYN visit in last 3 months: Yes Hx Now: No Do You Feel Safe at Home: Yes Authorities Contacted: N/A Questionairres Past Medical History Past Medical History Have you ever been diagnosed with any of the following: Neurological Problems Cerebrovascular Accident (CVA): No Transient Ischemic Attacks (TIA): No Dementia: No Alzheimer's Disease: No Parkinson's Disease: No Brain Tumor: No Meningitis: No Seizures: No Epilepsy: No Multiple Sclerosis: No Cerebral Palsy: No Amyotrophic Lateral Sclerosis (ALS/Nakia Gehrig's): No Guillain-[place] Syndrome: No Spina Bifida: No Paralysis: No Peripheral Neuropathy: No Hurtado's Palsy: No Subdural Hematoma: No Migraine: No Head Trauma: No Spinal Cord Injury: No Traumatic Brain Injury: No Cardiology Problems Myocardial Infarction: No Cardiac Arrhythmia: No Atrial Fibrillation: No Angina: No Heart Murmur: No Coronary Artery Disease: No Atherosclerotic Heart Disease: No Peripheral Vascular Disease: No Hypercholesterolemia: No Aneurysm: No Congestive Heart Failure: No Congenital Heart Disease: No Valvular Heart Disease: No Rheumatic Fever: No Cardiomyopathy: No Edema: No Pericarditis: No Cellulitis: No Deep Vein Thrombosis: No Hypertension: Yes Hypotension: No Varicose Veins: No Respiratory Problems Chronic Obstructive Pulmonary Disease (COPD): No Asthma: No Bronchitis: Yes (many years ago) Emphysema: No Pneumonia: No Pulmonary Fibrosis: No Tuberculosis: No Pulmonary Embolism: No Pulmonary Edema: No Sleep Apnea: No CPAP Dependent: No Respiratory Aspiration: No Dyspnea: No Orthopnea: No Hx Cough: No Cough: No Wheezing: No Chest Deformities: No Smoking: No Smoking Cessation Counseling: No Smoking Exposure: No Stomache/Intestinal Problems Hepatitis: No Hemorrhoids: Yes Obesity: Yes Genital/Urinary Problems Renal Disease: No Reproductive Problems Previous Pregnancies: Yes (x3) Musculoskeletal Problems Arthritis: Yes (knees, hands) Head,Eye,Nose,Throat Problems Cataracts: Yes Endocrine Problems Diabetes Mellitus Type 1: No Diabetes Mellitus Type 2: No Hypothyroidism: Yes Psychologic Problems Depression: Yes Other Problems Hospitalization: Yes (surgery) Shingles: No Blood Transfusions: No Blood Transfusion Reaction: No Anesthesia Reactions: No Chicken Pox: Yes Measles: Yes Mumps: Yes Cancer: Yes Surgical History Hysterectomy: Yes Subjective Visit Visit for: follow up visit, post op #1 and knee Immunization / Flu Flu Vaccine in the Last 12 Months: Yes Flu Vaccine Exclusion Criteria: Already Received History of Present Illness Chief complaint: 3 MONTH FOLLOW UP/DESIRES SURGERY Hope is a pleasant 68-year-old female with bilateral knee pain and bilateral knee arthritis. The right side is worse than the left. She is s/p R TKAand is doing well Personal History Occupation: RETIRED Pain Pain level (0-10): 5 Pain duration: CONSTANT Pain location: inside (medial), outside (lateral), anterior and posterior Pain quality: sharp Pain timing: increases with activity Associated signs & symptoms: none Treatments Improvement with previous injections: No Improvement with PT: No Improvement with NSAIDS: n/a Review of Systems Review of Systems: All systems negative unless otherwise noted in HPI.
[2025-04-05 13:29] VITALS: BP 118/82; PULSE 106; RESP 19; TEMP 36.4; O2SAT 96; BMI 28.0
== END 2025-04-05 13:40 | disposition home or self-care (01) ==
LOC: HODSRG 12:59
PROVIDERS: PCP Family Medicine; Referring Provider Family Medicine; Supervising Provider Orthopaedic Surgery Adult Reconstructive Orthopaedic Surgery; Visit Provider Orthopaedic Surgery Adult Reconstructive Orthopaedic Surgery
DX: M17.0 Bilateral primary osteoarthritis of knee (principal); M25.562 Pain in left knee; M25.561 Pain in right knee; Z96.651 Presence of right artificial knee joint; I10 Essential (primary) hypertension; E03.9 Hypothyroidism, unspecified; E66.9 Obesity, unspecified; Z68.28 Body mass index [BMI] 28.0-28.9, adult
CPT/HCPCS: 99213; G0463

== ENCOUNTER 2025-04-24 11:00 | Outpatient (RCR) | payer MEDICARE, OTHER, SELFPAY ==
--- NOTE | 2025-04-18 12:00 | PTNOTE_ITS ---
PT OP Initial Eval Patient Information Outpatient Physical Therapy Treatment Date: 04/18/25 Visit Reasons: S/P RIGHT TK Medical Diagnosis: Right Knee OA Treatment Dx #1: Right Knee Pain Treatment Dx #2: Right Knee Mobility Deficits Start of Care: 04/18/25 Date of Onset: 03/21/25 Smoking Status Smoking Status: Never smoker Initial Assessment Subjective: Pt is a 69 y/o female s/p right TKA 03/21/25 due to knee OA. Pt still has pain 5/10 with activities. Pt has limitation with prolonged standing, walking, chores, balance, stairs, self care, and performing recreational activities. Pt also reports of left knee is bone on bone. Objective: Right Knee AROM: -8 deg to 115 deg Right Knee MMTs: grossly 4-/5 Right Hip MMTs: grossly 3+/5 SLS: NT Gait Observation: step through with cane; decrease WB on right LE in stance and decrease knee flexion with preswing Assessment: Pt demonstrate right knee mobility and strength deficits s/p TKA leading to difficulty with ADLs. Pt will benefit from physical therapy to increase ROM, strength, and work on ambulation Short Term and Senior Living Goals 1) Increase right knee flexion AROM to 120 deg in 12 wks to be able to perform squatting activities 2) Decrease knee pain to 2/10 in 12 wks to be able to stand more than 30 mins 3) Increase right knee MMTs grossly to 4/5 in 12 wks to be able to perform stairs and steps 4) Increase right hip MMTs grossly to 4-/5 in 12 wks to be able to walk more than 30 mins 5) Increase SLS to 15 sec in 12 wks to be able to perform self care activities 6) Indep with HEP Treatment Plan 1) Manual Therapy 2) Therapeutic Activities 3) Therapeutic Exercises 4) Modalities (ice, heat( 5) Balance Training 6) Gait Training Frequency and Duration: 2 x wk for 12 wks Certification Dates: 04/18/25 to 07/18/25 Procedure Charges OP PT Eval Mod Complex 30 minutes: Yes
--- NOTE | 2025-04-20 11:35 | PT.ODAYNRPT ---
PT Outpatient Daily Note OP Daily Note Outpatient Physical Therapy Treatment Date: 04/20/25 Visit Reasons: S/P RIGHT TK Subjective: Pt lost sleep thinking about PT. Pt's knee still has pain and swelling. Objective: Please see flow chart for list of ther ex performed Assessment: progressing with knee flexion AAROM during heel slide with OP. Cues to keep the toes straight with side steps and monster walks Plan: Continue with PT Length of Time (minutes) of Treatment: 30 Minutes Procedure Charges Therapeutic Exercise 30 minutes: Yes
--- NOTE | 2025-04-24 11:54 | PT.ODAYNRPT ---
PT Outpatient Daily Note OP Daily Note Outpatient Physical Therapy Treatment Date: 04/24/25 Visit Reasons: S/P RIGHT TK Subjective: Pt's knee is better, however, still has stiffness when she does less around the house. Pt attempted to walk daily around her house but it's too much. Objective: Right Knee Flexion AROM: 117 deg Assessment: Pt is progressing with knee flexion AROM with less pain reported. Pt encourage to walk as needed but not daily to allow knee muscle recovery as well as timeframe from date of surgery. Pt gave verbal understanding Plan: Continue with PT Length of Time (minutes) of Treatment: 30 Minutes Procedure Charges Therapeutic Exercise 30 minutes: Yes
== END 2025-04-24 23:59 | disposition home or self-care (01) ==
LOC: CPTX 11:00
PROVIDERS: PCP Family Medicine; Referring Provider Orthopaedic Surgery Adult Reconstructive Orthopaedic Surgery; Visit Provider Orthopaedic Surgery Adult Reconstructive Orthopaedic Surgery
DX: M25.561 Pain in right knee (principal); R26.2 Difficulty in walking, not elsewhere classified; R26.89 Other abnormalities of gait and mobility; Z96.651 Presence of right artificial knee joint
CPT/HCPCS: 97110; 97162

== ENCOUNTER 2025-05-17 15:06 | Outpatient (AMB) | payer MEDICARE, OTHER, SELFPAY ==
[2025-05-17 15:23] VITALS: BP 117/78; PULSE 91; RESP 18; TEMP 36.6; O2SAT 97; BMI 28.9
--- NOTE | 2025-05-17 15:23 | ORTHONT_ITS ---
Vital signs 05/17/25 15:23 Height 1.55 m Height Method Measured Weight 69.541 kg Weight Measurement Method Standing Scale BMI 28.9 BP 117/78 Blood Pressure Source Automatic Cuff Blood Pressure Location Left Upper Arm Position Left Lateral Respiration 18 Pulse 91 Pulse Source Monitor Temp 97.8 F Temp Source Temporal Artery Scan Pulse Oximetry (%) 97 Oxygen Delivery Method Room Air Med/Allergies Allergies & Medications Allergies No Known Allergies Allergy (Verified 05/17/25 15:24) Medication Reconciliation paroxetine HCl 25 mg tablet,extended release 24 hr (Paxil CR) 50 mg PO QDAY ##0 10/09/14 [History Confirmed 05/17/25] pravastatin 80 mg tablet (Pravachol) 80 mg PO HS #0 tabs 10/09/14 [History Confirmed 05/17/25] oxybutynin chloride 10 mg tablet,extended release 24 hr 10 mg PO QDAY 03/16/22 [History Confirmed 05/17/25] lisinopril 10 mg tablet 10 mg PO QDAY #0 tabs 01/09/25 [History Confirmed 05/17/25] semaglutide (weight loss) 0.5 mg/0.5 mL subcutaneous pen injector (Wegovy) 0.5 mg subcut QWEEK 01/09/25 [History Confirmed 05/17/25] levothyroxine 150 mcg tablet 150 mcg PO QDAY 03/15/25 [History Confirmed 05/17/25] acetaminophen 500 mg tablet (Acetaminophen Extra Strength) 1,000 mg (2 x 500 mg) PO Q6H PRN pain #90 tabs 03/21/25 [Rx Confirmed 05/17/25] aspirin 81 mg tablet,delayed release 81 mg PO BID #60 tabs 03/21/25 [Rx Confirmed 05/17/25] doxycycline hyclate 100 mg tablet 100 mg PO BID #14 tabs 03/21/25 [Rx Confirmed 05/17/25] gabapentin 300 mg capsule 300 mg PO .qhs #30 caps 03/21/25 [Rx Confirmed 05/17/25] oxycodone 5 mg tablet 5 mg PO Q6H PRN pain #28 tabs 03/21/25 [Rx Confirmed 05/17/25] sennosides 8.6 mg-docusate sodium 50 mg tablet (Senna-S) 1 tab-cap PO QDAY #30 tabs 03/21/25 [Rx Confirmed 05/17/25] oxycodone 5 mg tablet 5 mg PO Q6H PRN pain #28 tabs 03/29/25 [Rx Confirmed 05/17/25] oxycodone 5 mg tablet 5 mg PO Q6H PRN pain #28 tabs 04/16/25 [Rx Confirmed 05/17/25] Exam Exam Patient is in no acute distress and is cooperative with the examination today. Breathing is nonlabored. In no respiratory distress. Bilateral extremities were evaluated and demonstrates sensation intact to light touch. Palpable pedal pulses are present. No significant edema is present. Bilateral hips were examined. The patient has no pain with log roll of the hips. Internal rotation to 30 degrees and external rotation to 30 degrees is painless. Negative FADIR. The left knee was examined. The left knee is in [varus] alignment. Range of motion from [0-115] degrees. Knee is stable to varus and valgus as well as AP translation with <5mm. Patient has a [negative] McMurrays. There is [no] pain with patellofemoral compression and [no] crepitus noted. The knee is [tender] to palpation [medially]. The right knee was also examined. R knee incision is C/D/I. ROM is 0-105 degrees Assessment and Plan Problem List (1) Degenerative arthritis of knee, bilateral: Status: Acute Plan: Patient is a pleasant 69-year-old female with bilateral knee pain and bilateral knee arthritis. She is s/p R TKA and is doing well. We will see her back in 2 months with new xrays. Advanced Care Planning Discussion Advance care planning discussed with:: patient Office Procedures GNS Level of Care Nursing/Assessment Patient Status: Established Patient Nursing Assessment/Reassesment: Medication Reconciliation, Update PMH in EMR and Vital Signs Coordination of Care: Complex Care and Chronic Disease 1-5, Education Complex Pt/Fam, Consent,records obtained, informed consent, Results/Orders obtained and Staff clarify orders Established Patient Charge Established Patient Point Assignment: 95 Established Patient Point Charge: EP Level 3 (80-115) MA Intake Visit Data Collection New Patient or Established: Established Patient (seen at [facility] within 3 years) Reason for Visit:: FU R TKA Seen by Clinical Staff ONLY (RN/MA): No Alarm Mechanism Adjuster Required: No PCP or OBGYN visit in last 3 months: Yes Hx Now: No Do You Feel Safe at Home: Yes Authorities Contacted: N/A Questionairres Past Medical History Past Medical History Have you ever been diagnosed with any of the following: Neurological Problems Cerebrovascular Accident (CVA): No Transient Ischemic Attacks (TIA): No Dementia: No Alzheimer's Disease: No Parkinson's Disease: No Brain Tumor: No Meningitis: No Seizures: No Epilepsy: No Multiple Sclerosis: No Cerebral Palsy: No Amyotrophic Lateral Sclerosis (ALS/Nakia Gehrig's): No Guillain-Theodore Syndrome: No Spina Bifida: No Paralysis: No Peripheral Neuropathy: No Hurtado's Palsy: No Subdural Hematoma: No Migraine: No Head Trauma: No Spinal Cord Injury: No Traumatic Brain Injury: No Cardiology Problems Myocardial Infarction: No Cardiac Arrhythmia: No Atrial Fibrillation: No Angina: No Heart Murmur: No Coronary Artery Disease: No Atherosclerotic Heart Disease: No Peripheral Vascular Disease: No Hypercholesterolemia: No Aneurysm: No Congestive Heart Failure: No Congenital Heart Disease: No Valvular Heart Disease: No Rheumatic Fever: No Cardiomyopathy: No Edema: No Pericarditis: No Cellulitis: No Deep Vein Thrombosis: No Hypertension: Yes Hypotension: No Varicose Veins: No Respiratory Problems Chronic Obstructive Pulmonary Disease (COPD): No Asthma: No Bronchitis: Yes (many years ago) Emphysema: No Pneumonia: No Pulmonary Fibrosis: No Tuberculosis: No Pulmonary Embolism: No Pulmonary Edema: No Sleep Apnea: No CPAP Dependent: No Respiratory Aspiration: No Dyspnea: No Orthopnea: No Hx Cough: No Cough: No Wheezing: No Chest Deformities: No Smoking: No Smoking Cessation Counseling: No Smoking Exposure: No Stomache/Intestinal Problems Hepatitis: No Hemorrhoids: Yes Obesity: Yes Genital/Urinary Problems Renal Disease: No Reproductive Problems Previous Pregnancies: Yes (x3) Musculoskeletal Problems Arthritis: Yes (knees, hands) Head,Eye,Nose,Throat Problems Cataracts: Yes Endocrine Problems Diabetes Mellitus Type 1: No Diabetes Mellitus Type 2: No Hypothyroidism: Yes Psychologic Problems Depression: Yes Other Problems Hospitalization: Yes (surgery) Shingles: No Blood Transfusions: No Blood Transfusion Reaction: No Anesthesia Reactions: No Chicken Pox: Yes Measles: Yes Mumps: Yes Cancer: Yes Surgical History Hysterectomy: Yes Subjective Visit Visit for: follow up visit and knee Immunization / Flu Flu Vaccine in the Last 12 Months: Yes Flu Vaccine Exclusion Criteria: Already Received History of Present Illness Chief complaint: F/U TKA Hope is a pleasant 68-year-old female with bilateral knee pain and bilateral knee arthritis. The right side is worse than the left. She is s/p R TKA and is doing well Personal History Occupation: RETIRED Pain Pain level (0-10): 0 Pain duration: CONSTANT Pain location: inside (medial), outside (lateral), anterior and posterior Pain quality: sharp Pain timing: increases with activity Associated signs & symptoms: none Ambulatory data Ambulatory device: none Treatments Improvement with previous injections: No Improvement with PT: No Improvement with NSAIDS: n/a Review of Systems Review of Systems: All systems negative unless otherwise noted in HPI.
--- NOTE | 2025-05-17 15:29 | XR_ITS ---
EXAMINATION: Bilateral knees 2 views Right lateral knee right axial knee 2 views TECHNIQUE: Bilateral AP knees standing single view, bilateral PA knee standing single view flexion Standing right lateral knee, axial right lateral knee total 4 views Date and time: May 14 [id number], 1529 hours INDICATIONS: Status post knee surgery March 21, 2025 FINDINGS: Moderate osteopenia. Total right knee arthroplasty, satisfactory alignment No fracture No loosening of the prosthetic components Advanced narrowing medial joint space left knee IMPRESSION: Advanced narrowing medial joint space left knee
== END 2025-05-17 15:37 | disposition home or self-care (01) ==
LOC: HODSRG 15:06
PROVIDERS: PCP Nurse Practitioner Family; Referring Provider Nurse Practitioner Family; Supervising Provider Orthopaedic Surgery Adult Reconstructive Orthopaedic Surgery; Visit Provider Orthopaedic Surgery Adult Reconstructive Orthopaedic Surgery
DX: Z47.1 Aftercare following joint replacement surgery (principal); Z96.651 Presence of right artificial knee joint; M25.562 Pain in left knee; M25.561 Pain in right knee; M17.12 Unilateral primary osteoarthritis, left knee; I10 Essential (primary) hypertension; E66.9 Obesity, unspecified; Z68.28 Body mass index [BMI] 28.0-28.9, adult
CPT/HCPCS: 73564; 99213; G0463

== ENCOUNTER 2025-05-24 11:00 | Outpatient (RCR) | payer MEDICARE, OTHER, SELFPAY ==
--- NOTE | 2025-04-26 12:09 | PT.ODAYNRPT ---
PT Outpatient Daily Note OP Daily Note Outpatient Physical Therapy Treatment Date: 04/26/25 Visit Reasons: S/P RIGHT TKA Subjective: Pt's knee is better but continues to have pain in the inner knee. Pain is related to past injury but is hoping to improve after TKA Objective: Please see flow chart for list of ther ex performed Assessment: continue to progress with closed chain exercises. Pt's knee AROM is improving with less pain reported Plan: Continue with PT Length of Time (minutes) of Treatment: 30 Minutes Procedure Charges Therapeutic Exercise 30 minutes: Yes
--- NOTE | 2025-05-01 15:18 | PT.ODAYNRPT ---
PT Outpatient Daily Note OP Daily Note Outpatient Physical Therapy Treatment Date: 05/01/25 Visit Reasons: S/P RIGHT TKA Subjective: Pt is moving slower today. Pt mentioned her scar is looking better and is happy thus far. Objective: Please see flow chart for list of ther ex performed Assessment: slight fatigue in the hips post side step and monster walk exercises. Added weight to LAQ,knee curl, and standing hip abduction with good tolerance Plan: Continue with PT Length of Time (minutes) of Treatment: 30 Minutes Procedure Charges Therapeutic Exercise 30 minutes: Yes
--- NOTE | 2025-05-03 14:15 | PT.ODAYNRPT ---
PT Outpatient Daily Note OP Daily Note Outpatient Physical Therapy Treatment Date: 05/03/25 Visit Reasons: S/P RIGHT TKA Subjective: Pt reports R knee is doing better, has been compliant with HEP. Objective: Please see flow sheet for ther ex list. Assessment: Added intervention completed with good tolerance. Plan: Continue with poC. Progress per post op protocol. Length of Time (minutes) of Treatment: 30 Minutes Procedure Charges Therapeutic Exercise 30 minutes: Yes
--- NOTE | 2025-05-08 12:02 | PT.ODAYNRPT ---
PT Outpatient Daily Note OP Daily Note Outpatient Physical Therapy Treatment Date: 05/08/25 Visit Reasons: S/P RIGHT TKA Subjective: Pt has fallen over the weekend and landed on her large dog bed. Pt landed on her hip and it feels sore. Pt does not think she hurt anything and denies of pain with walking. Objective: Please see flow chart for list of ther ex performed Assessment: Pt demonstrate good knee and hip ROM post fall with minimal pain reported in today's session. All exercises modified to no resistance with good tolerance noted. Pt advised to follow up with PCP or surgeon if her right LE does hurt more in the next few days. Plan: Continue with PT Length of Time (minutes) of Treatment: 30 Minutes Procedure Charges Therapeutic Exercise 30 minutes: Yes
--- NOTE | 2025-05-10 11:43 | PT.ODAYNRPT ---
PT Outpatient Daily Note OP Daily Note Outpatient Physical Therapy Treatment Date: 05/10/25 Visit Reasons: S/P RIGHT TKA Subjective: Pt's knee is better. Pt drove to PT this morning and feels confidence Objective: Please see flow chart for list of ther ex performed Assessment: progressing well with closed chain exercises. Less antalgic gait noted today. cues to increase knee flexion with preswing Plan: Continue with PT Length of Time (minutes) of Treatment: 30 Minutes Procedure Charges Therapeutic Exercise 30 minutes: Yes
--- NOTE | 2025-05-15 12:52 | PT.ODAYNRPT ---
PT Outpatient Daily Note OP Daily Note Outpatient Physical Therapy Treatment Date: 05/15/25 Visit Reasons: S/P RIGHT TKA Subjective: Pt's knee feels good. Pt was able to go out with one of her neighbor for coffee and lunch. Objective: Please see flow chart for list of ther ex performed Assessment: added TB squat with good tolerance form. Minimal pain post PT session Plan: Continue with PT Length of Time (minutes) of Treatment: 30 Minutes Procedure Charges Therapeutic Exercise 30 minutes: Yes
--- NOTE | 2025-05-17 11:30 | PT.ODS1RPT ---
PT OP Progress/Discharge Note Date of Service: 05/17/25 Progress Note/DC Note Progress Note/Discharge Note: Progress Note Patient Information Visit Reasons: S/P RIGHT TKA Medical Diagnosis: Right Knee OA Treatment Dx #1: Right Knee Mobility Deficits Treatment Dx #2: Right Knee Pain Service Continue Service or Discharge: Continue Service Certification Date Certification Dates: 05/17/25 to 08/17/25 Status Subjective: Pt's knee is feeling much better. Pt still has pain in a certain spot and will ask Dr Flynn for further consultation. Pt has been able to stand, walk, perform chores, and drive with less limitation. Objective: Right Knee AROM: -8 deg to 120 deg Right Knee MMTs: grossly 4/5 Right Hip MMTs: grossly 3+/5 SLS: 3 sec Assessment: Pt demonstrate improvement with right knee mobility and strength allowing her to start light ADLs, ambulate, and perform chores with less limitation. Pt has not met set goals and will continue to benefit from physical therapy; thank you for your referrals. Plan: Continue with PT/POC Procedure Charges Therapeutic Exercise 30 minutes: Yes
--- NOTE | 2025-05-22 11:45 | PT.ODAYNRPT ---
PT Outpatient Daily Note OP Daily Note Outpatient Physical Therapy Treatment Date: 05/22/25 Visit Reasons: S/P RIGHT TKA Subjective: Pt's knee is a little sore today. 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 Pt notice less of the inner knee pain lately. Objective: Please see flow chart for list of ther ex performed Assessment: progressing with closed chain exercise. Added lateral step with good form noted. Pt is taking less rest breaks in therapy indicating improved overall endurance Plan: Continue with PT Length of Time (minutes) of Treatment: 30 Minutes Procedure Charges Therapeutic Exercise 30 minutes: Yes
--- NOTE | 2025-05-24 11:42 | PT.ODAYNRPT ---
PT Outpatient Daily Note OP Daily Note Outpatient Physical Therapy Treatment Date: 05/24/25 Visit Reasons: S/P RIGHT TKA Subjective: Pt's knee feels good. Pt does not have any concerns at the moment. Pt mentioned right hip continues to feel better since her recent fall. Pt has been able to do more leisure activities independently with spouse assistance Objective: Please see flow chart for list of ther ex performed Assessment: minimal pain with TG squat and patient may be ready for mini squat next session. Pt also taking less rest breaks indicating improved overall endurance Plan: Continue with PT Length of Time (minutes) of Treatment: 30 Minutes Procedure Charges Therapeutic Exercise 30 minutes: Yes
== END 2025-05-25 23:59 | disposition home or self-care (01) ==
LOC: CPTX 11:00
PROVIDERS: PCP Orthopaedic Surgery Adult Reconstructive Orthopaedic Surgery; Referring Provider Orthopaedic Surgery Adult Reconstructive Orthopaedic Surgery; Visit Provider Orthopaedic Surgery Adult Reconstructive Orthopaedic Surgery
DX: M25.561 Pain in right knee (principal); R26.2 Difficulty in walking, not elsewhere classified; R26.89 Other abnormalities of gait and mobility; Z96.651 Presence of right artificial knee joint
CPT/HCPCS: 97110

== ENCOUNTER 2025-06-20 11:00 | Outpatient (RCR) | payer MEDICARE, OTHER, SELFPAY ==
--- NOTE | 2025-05-29 12:01 | PT.ODAYNRPT ---
PT Outpatient Daily Note OP Daily Note Outpatient Physical Therapy Treatment Date: 05/29/25 Visit Reasons: s/p Right TKA Subjective: Pt's knee sore from all the Halloween festivities this past weekend. Pt continue to have more confidence that her knee is doing well and stronger now. Objective: Please see flow chart for list of ther ex performed Assessment: cues to keep heel down with standing knee eccentric TB exercise. Advance patient to 6 step up exercise with good form noted and able to engage quad while stepping up Plan: Continue with PT Length of Time (minutes) of Treatment: 30 Minutes Procedure Charges Therapeutic Exercise 30 minutes: Yes
--- NOTE | 2025-05-31 13:29 | PT.ODAYNRPT ---
PT Outpatient Daily Note OP Daily Note Outpatient Physical Therapy Treatment Date: 05/31/25 Visit Reasons: s/p Right TKA Subjective: Pt reports R knee is doing glen overall but c/o stiffness today. Objective: Please see flow sheet for ther ex list. Assessment: Pt familiar with interventions able to replicate exercises with good technique. Plan: Progress per post op porotol. Length of Time (minutes) of Treatment: 30 Minutes SKEIN BLEACHER Service Modifier Method I: Divide the number of min of care provided by the SKEIN BLEACHER/TECHNOLOGY EDUCATION TEACHER by the total min of care provided then multiply by 100. If greater than 11 percent modifier is required. Method II: Divide the total time of care provided to patient by 10 (round to the nearest whole number) and add 1 min. to set the minimum time requirement. If treatment total was 60 min., then 10% of 6 min PT CQ modifier applied: CQ Modifier applied Procedure Charges Therapeutic Exercise 30 minutes: Yes
--- NOTE | 2025-06-04 13:37 | PT.ODAYNRPT ---
PT Outpatient Daily Note OP Daily Note Outpatient Physical Therapy Treatment Date: 06/04/25 Visit Reasons: s/p Right TKA Subjective: Pt reports R knee is sore today, was on her feet more over the weekend than usual. Objective: Please see flow sheet for ther ex list. Assessment: Held off on resistance today to accommodate reported soreness. Plan: Continue with poC. Length of Time (minutes) of Treatment: 30 Minutes TIP CUTTER Service Modifier Method I: Divide the number of min of care provided by the TIP CUTTER/RESEARCH GREENHOUSE SUPERVISOR by the total min of care provided then multiply by 100. If greater than 11 percent modifier is required. Method II: Divide the total time of care provided to patient by 10 (round to the nearest whole number) and add 1 min. to set the minimum time requirement. If treatment total was 60 min., then 10% of 6 min PT CQ modifier applied: CQ Modifier applied Procedure Charges Therapeutic Exercise 30 minutes: Yes
--- NOTE | 2025-06-07 11:41 | PT.ODAYNRPT ---
PT Outpatient Daily Note OP Daily Note Outpatient Physical Therapy Treatment Date: 06/07/25 Visit Reasons: s/p Right TKA Subjective: Pt's knee is better, however, is having a hard day due to change in weather causing some knee pain. Objective: Please see flow chart for list of ther ex performed Assessment: no resistance was added to exercise today due to reported increase knee pain prior to therapy session Plan: Continue with PT Length of Time (minutes) of Treatment: 30 Minutes Procedure Charges Therapeutic Exercise 30 minutes: Yes
--- NOTE | 2025-06-12 11:44 | PT.ODAYNRPT ---
PT Outpatient Daily Note OP Daily Note Outpatient Physical Therapy Treatment Date: 06/12/25 Visit Reasons: s/p Right TKA Subjective: Pt's knee is much better and barely has pain. Pt still feel weak and has difficulty getting out of the car or under from the cover. Objective: Please see flow chart for list of ther ex perfomed Assessment: cues to keep foot planted with terminal knee extension YTB exercise. Pt exhibit more WB with 6 step up exercises with less pressure reported coming on to the step. Plan: Continue with PT Length of Time (minutes) of Treatment: 30 Minutes Procedure Charges Therapeutic Exercise 30 minutes: Yes
--- NOTE | 2025-06-14 11:56 | PT.ODAYNRPT ---
PT Outpatient Daily Note OP Daily Note Outpatient Physical Therapy Treatment Date: 06/14/25 Visit Reasons: s/p Right TKA Subjective: Pt's knee is better but is moving like a turtle today. Pt wants to take it easier in therapy. Objective: Please see flow chart for list of ther ex performed Assessment: performed all exercises without resistance today per Pt's request; patient tolerate exercises well Plan: Continue with PT Length of Time (minutes) of Treatment: 30 Minutes Procedure Charges Therapeutic Exercise 30 minutes: Yes
--- NOTE | 2025-06-18 11:37 | PT.ODAYNRPT ---
PT Outpatient Daily Note OP Daily Note Outpatient Physical Therapy Treatment Date: 06/18/25 Visit Reasons: s/p Right TKA Subjective: Pt's knee feels much better better. Pt is not moving like a turtle today and will like to be push a little more. Objective: Please see flow chart for list of ther ex perfomed Assessment: increase resistance on the sci fit and add more resistance with TKE with good form noted Plan: Continue with PT Length of Time (minutes) of Treatment: 30 Minutes Procedure Charges Therapeutic Exercise 30 minutes: Yes
--- NOTE | 2025-06-20 11:48 | PT.ODAYNRPT ---
PT Outpatient Daily Note OP Daily Note Outpatient Physical Therapy Treatment Date: 06/20/25 Visit Reasons: s/p Right TKA Subjective: Pt reports R knee is doing better but notices she has some difficulty lifting leg to get in/out of car. Objective: Please see flow sheet for ther ex list. Assessment: Added interventions completed with muscle fatigue but no pain. Plan: Continue with POC. Length of Time (minutes) of Treatment: 30 Minutes Procedure Charges Therapeutic Exercise 30 minutes: Yes
== END 2025-06-24 23:59 | disposition home or self-care (01) ==
LOC: CPTX 11:00
PROVIDERS: PCP Orthopaedic Surgery Adult Reconstructive Orthopaedic Surgery; Referring Provider Orthopaedic Surgery Adult Reconstructive Orthopaedic Surgery; Visit Provider Orthopaedic Surgery Adult Reconstructive Orthopaedic Surgery
DX: Z47.1 Aftercare following joint replacement surgery (principal); Z96.651 Presence of right artificial knee joint; M25.561 Pain in right knee; R26.2 Difficulty in walking, not elsewhere classified; R26.89 Other abnormalities of gait and mobility
CPT/HCPCS: 97110

== ENCOUNTER 2025-07-09 14:30 | Outpatient (RCR) | payer MEDICARE, OTHER, SELFPAY ==
--- NOTE | 2025-06-26 16:03 | PTNOTE_ITS ---
PT Outpatient Daily Note OP Daily Note Outpatient Physical Therapy Treatment Date: 06/26/25 Visit Reasons: KNEE PAIN Subjective: Pt reports progress with knee and mentioned that she notices it is getting easier to get in/out of car. Objective: Please see flow sheet for ther ex list. Assessment: Continue focus on restoring functional strength so pt can perform ADLs with less difficulty. Plan: Continue with pOC. Length of Time (minutes) of Treatment: 30 Minutes STRETCHING MACHINE OPERATOR Service Modifier Method I: Divide the number of min of care provided by the STRETCHING MACHINE OPERATOR/BRITTANEY by the total min of care provided then multiply by 100. If greater than 11 percent modifier is required. Method II: Divide the total time of care provided to patient by 10 (round to the nearest whole number) and add 1 min. to set the minimum time requirement. If t reatment total was 60 min., then 10% of 6 min PT CQ modifier applied: CQ Modifier applied Procedure Charges Therapeutic Exercise 30 minutes: Yes
--- NOTE | 2025-06-28 13:57 | PT.ODAYNRPT ---
PT Outpatient Daily Note OP Daily Note Outpatient Physical Therapy Treatment Date: 06/28/25 Visit Reasons: KNEE PAIN Subjective: Pt's knee is better. Pt does not have any concerns. Pt's medial knee pain is almost gone and has been able to drive safely. Objective: Please see flow chart for list of ther ex performed Assessment: progressing with all exercises and performed with good form. Plan: Continue with PT Length of Time (minutes) of Treatment: 30 Minutes Procedure Charges Therapeutic Exercise 30 minutes: Yes
--- NOTE | 2025-07-02 15:26 | PT.ODAYNRPT ---
PT Outpatient Daily Note OP Daily Note Outpatient Physical Therapy Treatment Date: 07/02/25 Visit Reasons: KNEE PAIN Subjective: Pt reports knee is doing better. Objective: Please see flow sheet for ther ex list. Assessment: Continue working on improving functional strength to work toward pt performing ADLS with less difficultly. Plan: Continue with poC. Length of Time (minutes) of Treatment: 30 Minutes QUALITY IMPROVEMENT ANALYST Service Modifier Method I: Divide the number of min of care provided by the QUALITY IMPROVEMENT ANALYST/PUSH BENCH OPERATOR HELPER by the total min of care provided then multiply by 100. If greater than 11 percent modifier is required. Method II: Divide the total time of care provided to patient by 10 (round to the nearest whole number) and add 1 min. to set the minimum time requirement. If treatment total was 60 min., then 10% of 6 min PT CQ modifier applied: CQ Modifier applied Procedure Charges Therapeutic Exercise 30 minutes: Yes
--- NOTE | 2025-07-09 15:37 | PTNOTE_ITS ---
PT Outpatient Daily Note OP Daily Note Outpatient Physical Therapy Treatment Date: 07/09/25 Visit Reasons: KNEE PAIN Subjective: Pt reports knee is doing better. Objective: Please see flow sheet for ther ex list. Assessment: Progressing functional strengthening per protocol and tolerance. Plan: PTOR to write [place] or d/c note, pt has one visit left. Length of Time (minutes) of Treatment: 30 Minutes CLIPPER AUTOMATIC Service Modifier Method I: Divide the number of min of care provided by the CLIPPER AUTOMATIC/BRITTANEY by the total min of care provided then multiply by 100. If greater than 11 percent modifier is required. Method II: Divide the total time of care provided to patient by 10 (round to the nearest whole number) and add 1 min. to set the minimum time requirement. If treatment total was 60 min., then 10% of 6 min PT CQ modifier applied: CQ Modifier applied Procedure Charges Therapeutic Exercise 30 minutes: Yes
== END 2025-07-25 23:59 | disposition home or self-care (01) ==
LOC: CPTX 14:30
PROVIDERS: PCP Orthopaedic Surgery Adult Reconstructive Orthopaedic Surgery; Referring Provider Orthopaedic Surgery Adult Reconstructive Orthopaedic Surgery; Visit Provider Orthopaedic Surgery Adult Reconstructive Orthopaedic Surgery
DX: Z47.1 Aftercare following joint replacement surgery (principal); Z96.651 Presence of right artificial knee joint; M25.561 Pain in right knee; R26.2 Difficulty in walking, not elsewhere classified; R26.89 Other abnormalities of gait and mobility
CPT/HCPCS: 97110

== ENCOUNTER → 2025-07-10 | Outpatient (BNVA) | payer MEDICARE, OTHER, SELFPAY | END | disposition home or self-care (01) | PROVIDERS: PCP Nurse Practitioner Family; Referring Provider Nurse Practitioner Family; Visit Provider Urology | DX: R35.0 Frequency of micturition (principal); Z87.440 Personal history of urinary (tract) infections; Z96.659 Presence of unspecified artificial knee joint; I10 Essential (primary) hypertension; E66.9 Obesity, unspecified; Z68.31 Body mass index [BMI] 31.0-31.9, adult | CPT/HCPCS: 81003; 99212; G0463 ==

== ENCOUNTER 2025-07-24 15:17 | Outpatient (AMB) | payer MEDICARE, OTHER, SELFPAY ==
--- NOTE | 2025-07-24 15:14 | PD.ORTHTELE ---
Med/Allergies Allergies & Medications Allergies No Known Allergies Allergy (Verified 07/24/25 15:14) Medication Reconciliation paroxetine HCl 25 mg tablet,extended release 24 hr (Paxil CR) 50 mg PO QDAY ##0 10/09/14 [History Confirmed 07/24/25] pravastatin 80 mg tablet (Pravachol) 80 mg PO HS #0 tabs 10/09/14 [History Confirmed 07/24/25] oxybutynin chloride 10 mg tablet,extended release 24 hr 10 mg PO QDAY 03/16/22 [History Confirmed 07/24/25] lisinopril 10 mg tablet 10 mg PO QDAY #0 tabs 01/09/25 [History Confirmed 07/24/25] semaglutide (weight loss) 0.5 mg/0.5 mL subcutaneous pen injector (Wegovy) 0.5 mg subcut QWEEK 01/09/25 [History Confirmed 07/24/25] levothyroxine 150 mcg tablet 150 mcg PO QDAY 03/15/25 [History Confirmed 07/24/25] acetaminophen 500 mg tablet (Acetaminophen Extra Strength) 1,000 mg (2 x 500 mg) PO Q6H PRN pain #90 tabs 03/21/25 [Rx Confirmed 07/24/25] aspirin 81 mg tablet,delayed release 81 mg PO BID #60 tabs 03/21/25 [Rx Confirmed 07/24/25] doxycycline hyclate 100 mg tablet 100 mg PO BID #14 tabs 03/21/25 [Rx Confirmed 07/24/25] gabapentin 300 mg capsule 300 mg PO .qhs #30 caps 03/21/25 [Rx Confirmed 07/24/25] sennosides 8.6 mg-docusate sodium 50 mg tablet (Senna-S) 1 tab-cap PO QDAY #30 tabs 03/21/25 [Rx Confirmed 07/24/25] oxycodone 5 mg tablet 5 mg PO Q6H PRN pain #28 tabs 04/16/25 [Rx Confirmed 07/24/25] Subjective Visit Visit for: follow up visit Immunization / Flu Flu Vaccine in the Last 12 Months: No Flu Vaccine Exclusion Criteria: No Exclusion Criteria History of Present Illness Chief complaint: XRAY RESULTS Irma is doing well status post right total knee replacement. Is 4 months postop and she is doing well. This visit is a virtual visit as she has some viral illness Pain Pain level (0-10): 3 Pain duration: ON AND OFF Pain location: anterior Pain quality: sharp, dull and aching Ambulatory data Ambulatory device: none Review of Systems Review of Systems: All systems negative unless otherwise noted in HPI. Assessment and Plan Problem List (1) Degenerative arthritis of knee, bilateral: Status: Acute Plan: Patient is a pleasant 69-year-old female with bilateral knee pain and bilateral knee arthritis. She is s/p R TKA and is doing well. her x-rays look great and she reports the left knee has been starting to bother her. We discussed total knee replacement versus anti-inflammatories and injections. SHe would like to continue with conservative treatment Advanced Care Planning Discussion Advance care planning discussed with:: patient Office Procedures GNS Level of Care Nursing/Assessment Patient Status: Established Patient Nursing Assessment/Reassesment: Medication Reconciliation, Update PMH in EMR and Vital Signs Coordination of Care: Complex Care and Chronic Disease 1-5, Education Complex Pt/Fam, Consent,records obtained, informed consent, Results/Orders obtained and Staff clarify orders Established Patient Charge Established Patient Point Assignment: 95 Telehealth If patient is seen using Teleconference methods, complete New/Est section, but DO NOT risa points only risa the correct Telemed visit type Telemed Phone/Video with patient at home & ,[place],[employer] OFFICER: Yes
== END 2025-07-24 15:30 | disposition home or self-care (01) ==
LOC: HODSRG 15:17
PROVIDERS: Supervising Provider Orthopaedic Surgery Adult Reconstructive Orthopaedic Surgery; Visit Provider Orthopaedic Surgery Adult Reconstructive Orthopaedic Surgery
DX: Z47.1 Aftercare following joint replacement surgery (principal); Z96.651 Presence of right artificial knee joint; M17.12 Unilateral primary osteoarthritis, left knee; M25.562 Pain in left knee; M25.561 Pain in right knee
CPT/HCPCS: 99212; G0463